=== PATIENT | female | born 1960 | race Hispanic/Latino ===

== ENCOUNTER → 2024-05-25 | Outpatient (CLI) | payer MEDICARE ==
[2024-05-25 16:32] LABS: HEMOGLOBIN A1C 6.7 % (4.0-6.0)
[2024-05-25 16:35] LABS: ALBUMIN 4.3 g/dL (3.5-5.0); BILIRUBIN,TOTAL 0.7 mg/dL (0.2-1.0); CREATININE 0.7 mg/dL (0.5-1.0); POTASSIUM 3.6 mmol/L (3.5-5.1); TOTAL PROTEIN, SERUM 7.9 g/dL (6.0-8.3)
== END | disposition home or self-care (01) ==
LOC: LAB 11:59
PROVIDERS: ATTEND Student in an Organized Health Care Education/Training Program
DX: E78.5 Hyperlipidemia, unspecified (principal); R00.2 Palpitations; R07.9 Chest pain, unspecified; Z79.899 Other long term (current) drug therapy
CPT/HCPCS: 36415; 80053; 80061; 83036